=== PATIENT | female | born 1990 | race Two or more races ===

== ENCOUNTER 2024-06-01 14:58 | Outpatient (AMB) | payer OTHER, SELFPAY ==
--- NOTE | 2024-06-01 15:03 | A.OFFVIS_ITS ---
Vital Signs 06/01/24 15:05 Height 5 ft 6 in Weight 203 lb BMI 32.8 BP 118/66 Intake Visit Reasons: New patient control consult Cold Roll Operator Required: Yes Cold Roll Operator Language: Lithuanian Cold Roll Operator Services: Cold Roll Operator Present Cold Roll Operator Name: Black#[id number].(very helpful-MO'B Information Interpreted: clinical only Turf Sales Person: Turf Sales Person Present Allergies No Known Allergies Allergy (Verified 06/01/24 15:05) Medication List - Last Reconciled 06/01/24 by Sabrina Jones CNM etonogestrel (Nexplanon) subdermal Is last menstrual period known: No (Nexplanon) HPI HPI New patient control consult: Details: Patient is here as a new patient consult referred from a provider in [place] to discuss removal of her Nexplanon which may also be an or plant. It was placed in [place] 3 or 4 years ago. She has a history of 2 C sections she says her last baby was born at [facility]. She came with her Andre and their 2 children but I requested that they went outside and we did have an major assembly inspector who was a female (requested) Lithuanian major assembly inspector was very helpful. Patient did speak some Eritrean. She believes she is in good health she did not have any complications in her either 1. She denies having any high blood pressure or diabetes. She wants to have another baby her youngest child is 4 years old. She feels ready at 1st she said she had gained weight since she had placed the Nexplanon in but she actually clarified that she had weight herself before Ramadan and the difference in her weight was more just the clothing . She has been worried/suspecting often of late and has been doing tests periodically the last 1 she did was a month ago and it was negative. She removed her arm from the sleeve of her dress so that I could palpate the Nexplanon and she showed me very exactly where it is but I could only barely palpate the edge of it not sufficient to feel comfortable to plan an office removal. I am therefore referring her to [facility] general surgeons to discuss removal which would be a safer way to proceed. She and her expressed concern about washing to have a female provider and I did share that that may not be possible in this particular situation and if they chose they could also seek a female surgeon where they had been seen before. I explained that I would have been able to remove this if it was not so deep but I do not feel comfortable or safe in proceeding in office procedure to blindly remove the Nexplanon. In the meantime I recommend she continue to eat as healthy as she can and consider taking a multivitamin with folic acid every day. [facility] Surgical History (Updated 06/01/24 @ 15:07 by Leonor Zavaleta [facility]) S/P Female Reproductive History Menstrual Age of Menarche: 14 control method: implanted Total pregnancies: 2 Full term: 2 Date of last pap smear: 03/18/19 (neg.per patient) Physical Exam Vital Signs: Last Vital Signs BP 118/66 06/01/24 15:05 BMI result Body Mass Index 32.8 Const Other: I palpated her left arm, she was able to guide me to wear the Nexplanon is and in pressing very very deep I could almost palpate it but not in the secure way and I do not have confidence that I would be able to safely in the office. Assessment & Plan Assessment & Plan (1) Nexplanon in place: Comment: Patient has Nexplanon that was inserted in [place] 3 or 4 years ago and is very deep and she desires removal in order to have another baby. Code(s): Z97.5 - Presence of (intrauterine) contraceptive device Category: Social Hx Plan Patient is here as a new patient consult referred from a provider in [place] to discuss removal of her Nexplanon which may also be an or plant. It was placed in [place] 3 or 4 years ago. She has a history of 2 C sections she says her last baby was born at [facility]. She came with her Andre and their 2 children but I requested that they went outside and we did have an major assembly inspector who was a female (requested) Lithuanian major assembly inspector was very helpful. Patient did speak some Eritrean. She believes she is in good health she did not have any complications in her either 1. She denies having any high blood pressure or diabetes. She wants to have another baby her youngest child is 4 years old. She feels ready at 1st she said she had gained weight since she had placed the Nexplanon in but she actually clarified that she had weight herself before Ramadan and the difference in her weight was more just the clothing . She has been worried/suspecting often of late and has been doing tests periodically the last 1 she did was a month ago and it was negative. She removed her arm from the sleeve of her dress so that I could palpate the Nexplanon and she showed me very exactly where it is but I could only barely palpate the edge of it not sufficient to feel comfortable to plan an office removal. I am therefore referring her to [facility] general surgeons to discuss removal which would be a safer way to proceed. She and her expressed concern about washing to have a female provider and I did share that that may not be possible in this particular situation and if they chose they could also seek a female surgeon where they had been seen before. I explained that I would have been able to remove this if it was not so deep but I do not feel comfortable or safe in proceeding in office procedure to blindly remove the Nexplanon. In the meantime I recommend she continue to eat as healthy as she can and consider taking a multivitamin with folic acid every day. In addition when she does get I recommend she return to [facility] for she has a history sections. In addition to that I did discuss that can be somewhat on she she might find herself needing to do tests periodically. certainly if her menses return it is a sign the medication is wearing off. Orders: Referrals General Surgery Referral Z97.5 - Presence of (intrauterine) contraceptive device Coding Level of Care Code New Pt Level 3 (40251) Diagnoses Nexplanon in place Z97.5
[2024-06-01 15:05] VITALS: BP 118/66; BMI 32.8
--- OUTSIDE RECORDS SUMMARY | 2024-06-01 18:15 | XMS_ITS | Clinical Summary ---
Author Organization [facility] Address [address] [place] [address] Phone Care Team Providers Care Molecular Biologist Name Role Phone Rosy Petty MD Primary Care Provider [phone] Allergies No known active allergies Medications acetaminophen-c odeine (TYLENOL #3) 300-30 mg per tablet Take 1-2 tablets by mouth every 6 (six) hours if needed for severe pain. Max Daily Amount: 8 tablets 12 tablet 12/20/2023 Active Active Problems No known active problems Encounters Date Type Department Care Team Description 04/04/2024 11:35 AM EST - 04/04/2024 2:[address] [facility] Emergency [address] [place] [address] Sprain of right ankle, unspecified ligament, initial encounter (Primary Dx) Discharge Disposition: Home or Self Care from Last 3 Months Social History Tobacco Use Types Packs/Day Years Used Date Smoking Tobacco: Never Smokeless Tobacco: Never Tobacco Cessation:Counseling Given: Not Answered Comments Unknown Sex and Gender Information Value Date Recorded Sex Assigned at Female 04/04/2024 11:06 AM EST Legal Sex Female 4:37 PM EDT Gender Identity Female 04/04/2024 11:06 AM EST Sexual Orientation Straight 04/04/2024 11 :06 AM EST Obstetrics History Last Filed Vital Signs Vital Sign Reading Time Taken Comments Blood Pressure 105/74 04/04/2024 10:51 AM EST Pulse 99 04/04/2024 10:51 AM EST Temperature 36.7 ??C (98 ??F) 04/04/2024 10:51 AM EST Respiratory Rate 20 04/04/2024 10:51 AM EST Oxygen Saturation 100% 04/04/2024 10:51 AM EST Inhaled Oxygen Concentration - - Weight 93 kg (205 lb) 04/04/2024 10:51 AM EST Height 170.2 cm (5' 7 ) 04/04/2024 10:51 AM EST Body Mass Index 32.11 04/04/2024 10:51 AM EST Plan of Treatment Health Maintenance Due Date Last Done Comments DTaP,Tdap,and Td Vaccines (1 - Tdap) 2010 Hepatitis B Vaccines (1 of 3 - 19+ 3-dose series) 2010 Cervical Cancer Screening: P ap Smear 2012 COVID-19 Vaccine (2023-2 5 season) 2023 Depression Screening 12/14/2023 HIV Screening 12/14/2023 Hepatitis C Screening 12/14/2023 Social Influencers of Health Screening 12/14/2023 Influenza Vaccine (Season Ended) 2024 HIB Vaccines Aged Out No longer eligi ble based on patient's age to complete this topic HPV Vaccines Aged Out No longer eligi ble based on patient's age to complete this topic Hepatitis A Vaccines Aged Out No long er eligible based on patient's age to complete this topic IPV Vaccines Aged Out No longer eligi ble based on patient's age to complete this topic MMR Vaccines Aged Out No longer eligi ble based on patient's age to complete this topic Meningococcal ACWY Vaccine Aged Out N o longer eligible based on patient's age to complete this topic Meningococcal B Vaccine Aged Out No l onger eligible based on patient's age to complete this topic Pneumococcal Vaccine: Pediat rics (0 to 5 Years) and At-Risk Patients (6 to 64 Years) Aged Out No longer eligible b ased on patient's age to complete this topic RSV Immunization Patients Un michael 20 months Aged Out No longer eligible b ased on patient's age to complete this topic Varicella Vaccines Aged Out No longer eligible based on patient's age to complete this topic Procedures Procedure Name Priority Date/Time Associated Diagnosis Comments XR FOOT 3+ VIEWS RIGHT STAT 04/04/2024 1:02 PM EST XR ANKLE 3+ VIEWS RIGHT STAT 04/04/2024 11:40 AM EST from Last 3 Months Results * XR Foot 3+ Views Right (04/04/2024 1:02 PM EST) Anatomical Region Laterality Modality Lower Extremities, Foot Right Radiogra phic Imaging 04/04/2024 1:37 PM EST Impressions 04/04/2024 1:38 PM EST FINDINGS/IMPRESSION: No acute fracture. ??Normal alignment. -------- FINAL REPORT -------- Dictated By: Emili Swain Dictated Date: 04/04/2024 13:37 ET Assigned Physician: Emili Swain Reviewed and Electronically Signed By: Emili Swain Signed Date: 04/04/2024 13:38 ET Workstation ID: [id number] Transcribed By: Self Edit Transcribed Date: 04/04/2024 13:37 ET Narrative 04/04/2024 1:38 PM EST XR FOOT 3+ VIEWS RIGHT INDICATION: fall, pain 5th metatarsal TECHNIQUE: XR FOOT 3+ VIEWS RIGHT COMPARISON: No priors available. Procedure Note Emili Swain MD - 04/04/2024 XR FOOT 3+ VIEWS RIGHT INDICATION: fall, pain 5th metatarsal TECHNIQUE: XR FOOT 3+ VIEWS RIGHT COMPARISON: No priors available. IMPRESSION: FINDINGS/IMPRESSION: No acute fracture. Normal alignment. -------- FINAL REPORT -------- Dictated By: Emili Swain Dictated Date: 04/04/2024 13:37 ET Assigned Physician: Emili Swain Reviewed and Electronically Signed By: Emili Swain Signed Date: 04/04/2024 13:38 ET Workstation ID: [id number] Transcribed By: Self Edit Transcribed Date: 04/04/2024 13:37 ET Chio DELUCA XR PROCEDURES Final Result * XR Ankle 3+ Views Right (04/04/2024 11:40 AM EST) Anatomical Region Laterality Modality Lower Extremities, Ankle Right Radiogr aphic Imaging 04/04/2024 11:4 8 AM EST Impressions 04/04/2024 11:48 AM EST FINDINGS/IMPRESSION: No acute fracture. ?No dislocation. ??Mild soft tissue swelling. ??Tiny plantar calcaneal spur. -------- FINAL REPORT -------- Dictated By: Emili Swain Dictated Date: 04/04/2024 11:48 ET Assigned Physician: Emili Swain Reviewed and Electronically Signed By: Emili Swain Signed Date: 04/04/2024 11:48 ET Workstation ID: [id number] Transcribed By: Self Edit Transcribed Date: 04/04/2024 11:48 ET Narrative 04/04/2024 11:48 AM EST XR ANKLE 3+ VIEWS RIGHT INDICATION: pain TECHNIQUE: XR ANKLE 3+ VIEWS RIGHT COMPARISON: No priors available. Procedure Note Emili Swain MD - 04/04/2024 XR ANKLE 3+ VIEWS RIGHT INDICATION: pain TECHNIQUE: XR ANKLE 3+ VIEWS RIGHT COMPARISON: No priors available. IMPRESSION: FINDINGS/IMPRESSION: No acute fracture. No dislocation. Mild softtissue swelling. Tiny plantar calcaneal spur. -------- FINAL REPORT -------- Dictated By: Emili Swain Dictated Date: 04/04/2024 11:48 ET Assigned Physician: Emili Swain Reviewed and Electronically Signed By: Emili Swain Signed Date: 04/04/2024 11:48 ET Workstation ID: [id number] Transcribed By: Self Edit Transcribed Date: 04/04/2024 11:48 ET us Curly Anderson MD IMG XR PROCEDURES Final Res ult from Last 3 Months Insurance [facility] Care Teams Molecular Biologist Relationship Specialty Start Date End Date Rosy Petty MD [address] [address] PCP - General Internal Medicine 04/04/24
== END 2024-06-01 15:57 | disposition home or self-care (01) ==
LOC: HO.HWSM 14:58
PROVIDERS: Visit Provider Advanced Practice Midwife
DX: Z97.5 Presence of (intrauterine) contraceptive device (principal)
CPT/HCPCS: 99203

== ENCOUNTER → 2024-06-01 14:58 | Outpatient (BNVA) | payer OTHER, SELFPAY | PROVIDERS: Visit Provider Advanced Practice Midwife | DX: Z97.5 Presence of (intrauterine) contraceptive device (principal) | CPT/HCPCS: 99202 ==

== ENCOUNTER 2024-07-26 10:04 | Outpatient (AMB) | payer OTHER, SELFPAY ==
--- NOTE | 2024-07-26 10:13 | MHC.OFFVIS ---
Vital Signs 07/26/24 10:22 Height 5 ft 6 in Weight 200 lb BMI 32.3 BP 116/58 L Blood Pressure Location Rt brachial Position Sitting Pulse 103 H Intake Visit Reasons: possible removal nexplanon Intake Note: Patient referred for possible removal of Nexplanon placed on Lt arm. Was placed 3yrs and 7m ago. Implant placed in [place], [facility]. Patient c/o: pain at site. Getting headaches, joint pain. Peoplesoft Administrator Required: No Accompanied by: Henrietta Allergies No Known Allergies Allergy (Verified 07/26/24 10:20) Medication List - Last Reviewed 07/26/24 by KYUNG Roche etonogestrel (Nexplanon) subdermal HPI HPI possible removal nexplanon: Details: 34 year female referred for removal of a Nexplanon implant. She apparently had this placed in 2 done almost 4 years ago. [place] and has been unable to find a surgeon to remove this until now. She denies any complaints otherwise with regards to this implant. [facility] Medical History (Updated 07/26/24 @ 10:21 by KYUNG Roche) High cholesterol Surgical History (Updated 06/01/24 @ 15:07 by Leonor Zavaleta CMA) S/P Social History Alcohol intake: never Patient Tobacco Use Status: Never used Tobacco Female Reproductive History Menstrual Age of Menarche: 14 Review of Systems Const Denies chills and Denies fever(s) Card Denies chest pain, Denies dyspnea and Denies dyspnea on exertion Resp Denies cough, Denies dyspnea and Denies dyspnea on exertion GI Denies hematochezia and Denies change in bowel habits Denies hematuria Musc Denies back pain and Denies limited range of motion Neuro Denies focal weakness and Denies convulsions Psych Denies depression and Denies mood swings Physical Exam Const General: comfortable and no acute distress Nutritional Appearance: overweight Orientation/consciousness: patient oriented x3 Neck Neck: Yes no lymphadenopathy Resp Auscultation: clear to auscultation bilaterally Cardio Rhythm: regular rhythm GI Palpation (GI): Soft to palpation, nontender and no guarding Neuro General: patient oriented x3 Extrem Other: Left upper arm - next planned implant palpable, no evidence of infection Assessment & Plan Assessment & Plan (1) Nexplanon in place: Comment: Patient has Nexplanon that was inserted in [place] 3 or 4 years ago and is very deep and she desires removal in order to have another baby. Code(s): Z97.5 - Presence of (intrauterine) contraceptive device Category: Social Hx Plan: I explained the technique of removal of the Nexplanon implant under local anesthesia. I reviewed the risks including but not limited to bleeding, infections, postop pain. She has given consent. This will be done in the office on her next visit. Her was with her during the visit. Coding Level of Care Code New Pt Level 3 (71175) Diagnoses Nexplanon in place Z97.5
[2024-07-26 10:22] VITALS: BP 116/58; PULSE 103; BMI 32.3
--- OUTSIDE RECORDS SUMMARY | 2024-07-26 11:06 | XMS_ITS | Clinical Summary ---
Author Organization [facility] Address [address] [place] [address] Phone Care Team Providers Care Systems Test Engineer Name Role Phone Rosy Petty MD Primary Care Provider [phone] Allergies No known active allergies Medications acetaminophen-c odeine (TYLENOL #3) 300-30 mg per tablet Take 1-2 tablets by mouth every 6 (six) hours if needed for severe pain. Max Daily Amount: 8 tablets 12 tablet 4 Active methylPREDNISol one (MEDROL DOSPAK) 4 mg tablet Take 1 tablet by mouth as directed on the package. 21 tablet 5 07/04/19 25 amoxicillin-cla vulanate (AUGMENTIN) 875-125 mg per tablet Take 1 tablet by mouth every 12 (twelve) hours for 7 days. 14 tablet 5 07/05/19 25 Active Problems No known active problems Encounters Date Type Department Care Team Description 07/18/2024 9:31 PM EDT - 07/19/2024 12:29 AM EDT Emergency [facility] Emergency [address] [place] [phone] Rash (Primary Dx); Viral syndrome Discharge Disposition: Home or Self Care 06/27/2024 1:43 PM EDT - 06/27/2024 4:04 PM EDT [facility] Emergency [address] [place] [phone] Nasal congestion (Primary Dx); Left otitis media, unspecified otitis media type Discharge Disposition: Home or Self Care from [...] Sign Reading Time Taken Comments Blood Pressure 116/81 07/18/2024 11:57 PM EDT Pulse 97 07/18/2024 11:57 PM EDT Temperature 37.3 ??C (99.1 ??F) 07/18/2024 11:57 PM E DT Respiratory Rate 18 07/18/2024 11:57 PM EDT Oxygen Saturation 100% 07/18/2024 11:57 PM EDT Inhaled Oxygen Concentration - - Weight 92.1 kg (203 lb) 07/18/2024 7:20 PM EDT Height 167.6 cm (5' 6 ) 07/18/2024 7:20 PM EDT Body Mass Index 32.77 07/18/2024 7:20 PM EDT Plan of Treatment Health Maintenance Due Date Last Done Comments DTaP,Tdap,and Td Vaccines (1 - Tdap) 2010 Hepatitis B Vaccines (1 of 3 - 19+ 3-dose series) 2010 Cervical Cancer Screening: P ap Smear 2012 COVID-19 Vaccine ( - 2023-2 5 season) 2023 Depression Screening 12/14/2023 HIV [...] Procedure Name Priority Date/Time Associated Diagnosis Comments MANUAL DIFFERENTIAL - SYSMEX WAM STAT 07/18/2024 7:44 PM EDT CBC WITH AUTO DIFFERENTIAL STAT 07/18/2024 7:44 PM EDT BASIC METABOLIC PANEL STAT 07/18/2024 7:44 PM EDT CBC AND DIFFERENTIAL STAT 07/18/2024 7:44 PM EDT XR CHEST 2 VIEWS STAT 06/27/2024 3:08 PM EDT RESPIRATORY VIRUS PANEL MOLECULAR STUDY STAT 06/27/2024 2:03 PM EDT from Last 3 Months Results * (ABNORMAL) Manual differential (07/18/2024 7:44 PM EDT) Neutrophils % 68.0 % LAB HEMETOLOGY METHOD 07/18/2024 8:46 PM EDT [facility] Bands % 1.0 % LAB HEMETOLOGY METHOD 07/18/2024 8:46 PM EDT [facility] Lymphocytes % 19.0 % LAB HEMETOLOGY METHOD 07/18/2024 8:46 PM EDT [facility] Reactive Lymphocyte 7.00 % LAB HEMETOLOGY METHOD 07/18/2024 8:46 PM EDT [facility] Monocytes % 4.0 % LAB [facility]OLOGY [facility] Eosinophils % 1.0 % LAB HEMETOLOGY METHOD 07/18/2024 8:46 PM [facility] Basophils % 0.0 % LAB HEMETOLOGY METHOD 07/18/2024 8:46 PM [facility] Neutrophils Absolute Manual 3.47 1.50 - 7.00 K/mcL LAB HEMETOLOGY METHOD 07/18/2024 8:46 PM [facility] Bands Absolute Manual 0.05(H) 0.00 - 0.00 K/mcL LAB HEMETOLOGY METHOD 07/18/2024 8:46 PM [facility] Lymphocytes Absolute 0.97(L) 1.00 - 5.00 K/mcL LAB HEMETOLOGY METHOD 07/18/2024 8:46 PM [facility] Reactive Lymph Abs Manual 0.36(H) 0.00 - 0.00 lym LAB HEMETOLOGY METHOD 07/18/2024 8:46 PM [facility] Monocytes Absolute Manual 0.20 0.20 - 1.00 K/mcL LAB HEMETOLOGY METHOD 07/18/2024 8:46 PM [facility] Eosinophils Absolute Manual 0.05 0.00 - 0.50 K/mcL LAB HEMETOLOGY METHOD 07/18/2024 8:46 PM [facility] Basophils Absolute Manual 0.00 0.00 - 0.20 K/mcL LAB HEMETOLOGY METHOD 07/18/2024 8:46 PM [facility] Rbc Morphology Consistent with indices Consistent with indices, Normal for LAB HEMETOLOGY METHOD 07/18/2024 8:46 PM [facility] Platelet Morphology - WAM See Note(A) Normal LAB HEMETOLOGY METHOD 07/18/2024 8:46 PM [facility] Comment:PLT: Normal Blood Venous blood specimen / Unknown Venipuncture / Unknown 07/18/2024 7:44 PM EDT 07/18/2024 8:03 PM EDT us Lucasgiuliano Juan Alberto Edwin Otto DO LAB BLOOD ORDERABLES Milvia l Result [facility] [address] [place] [address], [place] [phone] * CBC auto differential (07/18/2024 7:44 PM EDT) [facility] WBC 5.1 4.8 - 10.8 K/mcL LAB HEMETOLOGY METHOD 07/18/2024 8:46 PM EDT [facility] RBC 4.20 3.80 - 4.80 M/mcL LAB HEMETOLOGY METHOD 07/18/2024 8:46 PM EDT [facility] Hemoglobin 11.9 11.5 - 16.0 g/dL LAB HEMETOLOGY METHOD 07/18/2024 8:46 PM EDT [facility] Hematocrit 35.8 35.0 - 47.0 % LAB HEMETOLOGY METHOD 07/18/2024 8:46 PM EDT [facility] MCV 85.2 79.0 - 98.0 FL LAB HEMETOLOGY METHOD 07/18/2024 8:46 PM EDT [facility] MCH 28.3 27.0 - 32.0 pcg LAB HEMETOLOGY METHOD 07/18/2024 8:46 PM EDT [facility] MCHC 33.2 32.0 - 37.0 g/dL LAB HEMETOLOGY METHOD 07/18/2024 8:46 PM EDT [facility] RDW 12.9 11.0 - 15.0 % LAB HEMETOLOGY METHOD 07/18/2024 8:46 PM EDT [facility] Platelets 289 130 - 400 K/mcL LAB HEMETOLOGY METHOD 07/18/2024 8:46 PM EDT [facility] MPV 9.8 7.0 - 11.0 FL LAB HEMETOLOGY METHOD 07/18/2024 8:46 PM EDT [facility] NRBC 0.0 <1.0 % LAB HEMETOLOGY METHOD 07/18/2024 8:46 PM EDT [facility] NRBC Absolute 0.00 <0.10 K/mcL LAB HEMETOLOGY METHOD 07/18/2024 8:46 PM EDT [facility] Blood Venous blood specimen / Unknown Venipuncture / Unknown 07/18/2024 7:44 PM EDT 07/18/2024 8:03 PM EDT us Lucasgiuliano Nietony Otto DO LAB BLOOD ORDERABLES Milvia l Result [facility] [address] [place] [address], * (ABNORMAL) Basic metabolic panel (07/18/2024 7:44 PM EDT) Sodium 136 133 - 145 mmol/L LAB CHEMISTRY METHOD 07/18/2024 8:35 PM [facility] Potassium 3.8 3.5 - 5.5 mmol/L LAB CHEMISTRY METHOD 07/18/2024 8:35 PM [facility] Chloride 107 96 - 110 mmol/L LAB CHEMISTRY METHOD 07/18/2024 8:35 PM [facility] CO2 25 21 - 32 mmol/L LAB CHEMISTRY METHOD 07/18/2024 8:35 PM [facility] Anion Gap 4 3 - 11 LAB CHEMISTRY METHOD 07/18/2024 8:35 PM [facility] Glucose 134(H) 70 - 100 mg/dL LAB CHEMISTRY METHOD 07/18/2024 8:35 PM [facility] BUN 10 5 - 25 mg/dL LAB CHEMISTRY METHOD 07/18/2024 8:35 PM EDT [facility] Creatinine 0.63 0.50 - 1.10 mg/dL LAB CHEMISTRY METHOD 07/18/2024 8:35 PM EDT [facility] eGFR 120 >=60 mL/min/1. 73m2 LAB CHEMISTRY METHOD 07/18/2024 8:35 PM EDT [facility] Comment:Calculation based on the Chronic Kidney Disease Epidemiology Collaboration (CKD-EPI) equation refit without adjustment for race. BUN/Creatinine Ratio 15.9 LAB CHEMISTRY METHOD 07/18/2024 8:35 PM EDT [facility] Calcium 8.9 8.5 - 10.5 mg/dL LAB CHEMISTRY METHOD 07/18/2024 8:35 PM EDT [facility] Blood Venous blood specimen / Unknown Venipuncture / Unknown 07/18/2024 7:44 PM EDT 07/18/2024 8:03 PM EDT us Elizabeth Menjivar DO LAB BLOOD ORDERABLES Milvia l Result [facility] [address] [place] [address], [place] [phone] * XR Chest 2 Views (06/27/2024 3:08 PM EDT) Anatomical Region Laterality Modality Body Radiographic Danielle ging 06/27/2024 3:21 PM EDT Impressions 06/27/2024 3:21 PM EDT Unremarkable chest exam -------- FINAL REPORT -------- Dictated By: Darek Chávez Dictated Date: 06/27/2024 15:21 ET Assigned Physician: Darek Chávez Reviewed and Electronically Signed By: Darek Chávez Signed Date: 06/27/2024 15:21 ET Workstation ID: [id number] Transcribed By: Self Edit Transcribed Date: 06/27/2024 15:21 ET Narrative 06/27/2024 3:21 PM EDT EXAMINATION: Chest 2 views. CLINICAL INDICATION: Dyspnea, possible COPD. FINDINGS: The lungs are hyperexpanded but clear acute process. The heart size and pulmonary vascularity is normal. No gross bony abnormality seen. Procedure Note Darek Chávez MD - 06/27/2024 EXAMINATION: Chest 2 views. CLINICAL INDICATION: Dyspnea, possible COPD. FINDINGS: The lungs are hyperexpanded but clear acute process. The heartsize and pulmonary vascularity is normal. No gross bony abnormalityseen. IMPRESSION: Unremarkable chest exam -------- FINAL REPORT -------- Dictated By: Darek Chávez Dictated Date: 06/27/2024 15:21 ET Assigned Physician: Darek Chávez Reviewed and Electronically Signed By: Darek Chávez Signed Date: 06/27/2024 15:21 ET Workstation ID: [id number] Transcribed By: Self Edit Transcribed Date: 06/27/2024 15:21 ET Violeta Acosta PA IMG XR PROCEDURES Milvia l Result * (ABNORMAL) Respiratory virus panel molecular study (06/27/2024 2:03 PM EDT) Adenovirus Detection by PCR Not Detected Not Detected LAB MICROBIOLOGY METHOD 06/27/2024 3:11 PM EDT [facility] Influenza A PCR Not Detected Not Detected LAB MICROBIOLOGY METHOD 06/27/2024 3:11 PM EDT [facility] Influenza B PCR Not Detected Not Detected LAB MICROBIOLOGY METHOD 06/27/2024 3:11 PM EDT [facility] Coronavirus 229E Not Detected Not Detected LAB MICROBIOLOGY METHOD 06/27/2024 3:11 PM EDT [facility] Coronavirus HKU1 Not Detected Not Detected LAB MICROBIOLOGY METHOD 06/27/2024 3:11 PM EDT [facility] Coronavirus OC43 Not Detected Not Detected LAB MICROBIOLOGY METHOD 06/27/2024 3:11 PM EDT [facility] Coronavirus NL63 Not Detected Not Detected LAB MICROBIOLOGY METHOD 06/27/2024 3:11 PM EDT [facility] Parainfluenza Virus 1 Not Detected Not Detected LAB MICROBIOLOGY METHOD 06/27/2024 3:11 PM EDT [facility] Parainfluenza Virus 2 Not Detected Not Detected LAB MICROBIOLOGY METHOD 06/27/2024 3:11 PM EDT [facility] Parainfluenza Virus 3 Not Detected Not Detected LAB MICROBIOLOGY METHOD 06/27/2024 3:11 PM EDT [facility] Parainfluenza Virus 4 Not Detected Not Detected LAB MICROBIOLOGY METHOD 06/27/2024 3:11 PM EDT [facility] RSV PCR Not Detected Not Detected LAB MICROBIOLOGY METHOD 06/27/2024 3:11 PM EDT [facility] Human Metapneumovirus A and B Detected(A ) Not Detected LAB MICROBIOLOGY METHOD 06/27/2024 3:11 PM EDT [facility] Rhinovirus/Entero virus Not Detected Not Detected LAB MICROBIOLOGY METHOD 06/27/2024 3:11 PM EDT [facility] Bordetella pertussis Not Detected Not Detected LAB MICROBIOLOGY METHOD 06/27/2024 3:11 PM EDT [facility] Bordetella parapertussis Not Detected Not Detected LAB MICROBIOLOGY METHOD 06/27/2024 3:11 PM EDT [facility] Mycoplasma pneumo by PCR Not Detected Not Detected LAB MICROBIOLOGY METHOD 06/27/2024 3:11 PM EDT [facility] Chlamydia pneumoniae Not Detected Not Detected LAB MICROBIOLOGY METHOD 06/27/2024 3:11 PM EDT [facility] SARS COV-2 Not Detected Not Detected LAB MICROBIOLOGY METHOD 06/27/2024 3:11 PM EDT [facility] Swab Both anterior nares / Unknown Non-blood Collection / Unknown 06/27/2024 2:03 PM EDT 06/27/2024 2:08 PM EDT Narrative [facility] - 06/27/2024 3:11 PM EDT Testing was performed using the EnSol Respiratory Pathogen PCR Assay. All results must be correlated with the clinical findings. Results should not be used as the sole basis for diagnosis. False Negative results may occur from the presence of sequence variants in the region targeted by the assay or the presence of inhibitors. Results may be affected by concurrent antiviral/antimicrobial therapy or levels of organisms that are below the limit of detection. us Violeta JOINER LAB MICROBIOLOGY - GEN ERAL ORDERABLES Final Result [facility] [address] [place] [address], from Last 3 Months Additional Health Concerns Infection Onset Date Last Indicated Human Metapneumovirus 06/27/2024 06/27/2024 Insurance [facility] Care Teams Systems Test Engineer Relationship Specialty Start Date End Date Rosy Petty MD [address] [phone] PCP - General Internal Medicine 04/04/24
== END 2024-07-26 10:36 | disposition home or self-care (01) ==
LOC: HO.HGS 10:04
PROVIDERS: PCP Internal Medicine; Visit Provider Surgery
DX: Z97.5 Presence of (intrauterine) contraceptive device (principal)
CPT/HCPCS: 99203

== ENCOUNTER → 2024-07-26 10:04 | Outpatient (BNVA) | payer OTHER, SELFPAY | PROVIDERS: PCP Internal Medicine; Visit Provider Surgery | DX: Z97.5 Presence of (intrauterine) contraceptive device (principal) | CPT/HCPCS: 99202 ==

== ENCOUNTER 2024-09-01 08:29 | Outpatient (REF) | payer OTHER, SELFPAY | END 2024-09-01 08:30 | disposition home or self-care (01) | LOC: HO.LNP 08:29 | PROVIDERS: PCP Internal Medicine; Visit Provider Surgery | DX: Z30.46 Encounter for surveillance of implantable subdermal contraceptive (principal); L98.8 Other specified disorders of the skin and subcutaneous tissue; B96.4 Proteus (mirabilis) (morganii) as the cause of diseases classified elsewhere | CPT/HCPCS: 11982; 88300; 88302 ==

== ENCOUNTER 2024-09-01 08:29 | Outpatient (AMB) | payer OTHER, SELFPAY ==
[2024-09-01 08:32] VITALS: BP 127/76; PULSE 90; BMI 32.4
--- NOTE | 2024-09-01 08:32 | MHC.OFFVIS ---
Vital Signs 09/01/24 08:32 Height 5 ft 6 in Weight 201 lb BMI 32.4 BP 127/76 Blood Pressure Location Rt brachial Position Sitting Pulse 90 Intake Visit Reasons: removal nexplanon Intake Note: Patent here for excision of Nexplanon implant on left upper arm. 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 PFSH Medical History (Updated 07/26/24 @ 10:21 by KYUNG Roche) High cholesterol Surgical History S/P Social History (Updated 07/26/24 @ 10:21 by KYUNG Roche) Alcohol intake: never Patient Tobacco Use Status: Never used Tobacco Female Reproductive History Menstrual Age of Menarche: 14 Office Procedures Procedure Thyroid Biopsy Procedural Documentation: Procedure: Removal of Nexplanon implant She was placed in reclining position. The area of the implant was prepped and draped. Lidocaine 1% was used for local anesthesia. I made a short incision the skin overlying this implant with a blade 15. This carried down to full-thickness of the skin. I then used fine hemostats to dissect in the subcutaneous fat until was able to visualize the Nexplanon implant. This was gently dissected off of the subcutaneous fat until this was removed. This appeared intact. I closed the incision with full-thickness nylon 3-0 simple interrupted sutures. Dressings were applied. The procedure was completed. She tolerated procedure well. There were no immediate complications. She was given wound care instructions and will be seen in the office for removal sutures. Assessment & Plan Assessment & Plan (1) Nexplanon in place: Comment: Patient has Nexplanon that was inserted in [place] 3 or 4 years ago and is very deep and she desires removal in order to have another baby. Code(s): Z97.5 - Presence of (intrauterine) contraceptive device Category: Social Hx Plan: The Nexplanon implant was removed without difficulty. The patient tolerated procedure well. She was given wound care instructions and will be seen in the office for removal sutures. Coding Level of Care Code Procedure Only Diagnoses Nexplanon in place Z97.5
--- OUTSIDE RECORDS SUMMARY | 2024-09-01 08:33 | XMS_ITS | Clinical Summary ---
Author Organization [facility] Address [address] [place] [phone] Phone Care Team Providers Care Keyboard Instrument Tuner Name Role Phone Rosy Petty MD Primary Care Provider [phone] Allergies No known active allergies Medications acetaminophen-c odeine (TYLENOL #3) 300-30 mg per tablet Take 1-2 tablets by mouth every 6 (six) hours if needed for severe pain. Max Daily Amount: 8 tablets 12 tablet 12/20/2023 Active Active Problems No known active problems Encounters Date Type Department Care Team Description 07/18/2024 9:31 PM EDT - 07/19/2024 12:[address] [facility] Emergency [address] [place] [phone] Rash (Primary Dx); Viral syndrome Discharge Disposition: Home or Self Care 06/27/2024 1:43 PM EDT - 06/27/2024 4:[address] [facility] Emergency [address] [place] [phone] Nasal congestion (Primary Dx); Left otitis media, [...] 97 07/18/2024 11:57 PM EDT Temperature 37.3 C (99.1 F) 07/18/2024 11:57 PM EDT Respiratory Rate 18 07/18/2024 11:57 PM EDT [...] Vaccine ( - 2023-2 5 season) 2023 HIV Screening 12/14/2023 Hepatitis C Screening 12/14/2023 Social Influencers of Health Screening 12/14/2023 Depression Screening 02/18/2024 Influenza Vaccine (#1) 2024 HIB Vaccines Aged Out No longer [...] 5 Years) and At-Risk Patients (6 to 49 Years) Aged Out No longer eligible b [...] LAB HEMETOLOGY METHOD 07/18/2024 8:46 PM EDT [facility] Bands % 1.0 % LAB HEMETOLOGY METHOD 07/18/2024 8:46 PM EDT [facility] Lymphocytes % 19.0 % LAB HEMETOLOGY METHOD 07/18/2024 8:46 PM EDT [facility] Reactive Lymphocyte 7.00 % LAB HEMETOLOGY METHOD 07/18/2024 8:46 PM EDT [facility] Monocytes % 4.0 % LAB HEMETOLOGY METHOD 07/18/2024 8:46 PM EDT [facility] Eosinophils % 1.0 % LAB HEMETOLOGY METHOD 07/18/2024 8:46 PM EDT [facility] Basophils % 0.0 % LAB HEMETOLOGY METHOD 07/18/2024 8:46 PM EDT [facility] Neutrophils Absolute Manual 3.47 1.50 - 7.00 K/mcL LAB HEMETOLOGY METHOD 07/18/2024 8:46 PM EDT [facility] Bands Absolute Manual 0.05(H) 0.00 - 0.00 K/mcL LAB HEMETOLOGY METHOD 07/18/2024 8:46 PM EDT [facility] Lymphocytes Absolute 0.97(L) 1.00 - 5.00 K/mcL LAB HEMETOLOGY METHOD 07/18/2024 8:46 PM EDT [facility] Reactive Lymph Abs Manual 0.36(H) 0.00 - 0.00 lym LAB HEMETOLOGY METHOD 07/18/2024 8:46 PM EDT [facility] Monocytes Absolute Manual 0.20 0.20 - 1.00 K/mcL LAB HEMETOLOGY METHOD 07/18/2024 8:46 PM EDT [facility] Eosinophils Absolute Manual 0.05 0.00 - 0.50 K/mcL LAB HEMETOLOGY METHOD 07/18/2024 8:46 PM EDT [facility] Basophils Absolute Manual 0.00 0.00 - 0.20 K/mcL LAB HEMETOLOGY METHOD 07/18/2024 8:46 PM EDT [facility] Rbc Morphology Consistent with indices Consistent with indices, Normal for [place] LAB HEMETOLOGY METHOD 07/18/2024 8:46 PM EDT [facility] Platelet Morphology - WAM See Note(A) Normal LAB HEMETOLOGY METHOD 07/18/2024 8:46 PM EDT [facility] Comment:PLT: Normal Blood Venous blood specimen / Unknown Venipuncture / Unknown 07/18/2024 7:44 PM EDT 07/18/2024 8:03 PM EDT us Elizabeth Menjivar DO LAB BLOOD ORDERABLES Milvia l Result [facility] [address] [place] [address], [place] [phone] * CBC auto differential (07/18/2024 7:44 PM EDT) [facility] WBC 5.1 4.8 - 10.8 K/mcL LAB HEMETOLOGY METHOD 07/18/2024 8:46 PM EDT [facility] RBC 4.20 3.80 - 4.80 M/mcL LAB HEMETOLOGY METHOD 07/18/2024 8:46 PM EDT [facility] Hemoglobin 11.9 11.5 - 16.0 g/dL LAB HEMETOLOGY METHOD 07/18/2024 8:46 PM EDT [facility] Hematocrit 35.8 35.0 - 47.0 % LAB HEMETOLOGY METHOD 07/18/2024 8:46 PM EDT [facility] MCV 85.2 79.0 - 98.0 FL LAB HEMETOLOGY METHOD 07/18/2024 8:46 PM EDT [facility] MCH 28.3 27.0 - 32.0 pcg LAB HEMETOLOGY METHOD 07/18/2024 8:46 PM EDT [facility] MCHC 33.2 32.0 - 37.0 g/dL LAB HEMETOLOGY METHOD 07/18/2024 8:46 PM EDT [facility] RDW 12.9 11.0 - 15.0 % LAB HEMETOLOGY METHOD 07/18/2024 8:46 PM EDT [facility] Platelets 289 130 - 400 K/mcL LAB HEMETOLOGY METHOD 07/18/2024 8:46 PM EDT [facility] MPV 9.8 7.0 - 11.0 FL LAB HEMETOLOGY METHOD 07/18/2024 8:46 PM EDT [facility] NRBC 0.0 <1.0 % LAB HEMETOLOGY METHOD 07/18/2024 8:46 PM EDT [facility] NRBC Absolute 0.00 <0.10 K/mcL LAB HEMETOLOGY METHOD 07/18/2024 8:46 PM EDT [facility] Blood Venous blood specimen / Unknown Venipuncture / Unknown 07/18/2024 7:44 PM EDT 07/18/2024 8:03 PM EDT us Elizabeth Pineda Menjivar DO LAB BLOOD ORDERABLES Milvia l Result [facility] [address] [place] [address], [place] [phone] * (ABNORMAL) Basic metabolic panel (07/18/2024 7:44 PM EDT) Sodium 136 133 - 145 mmol/L LAB CHEMISTRY METHOD 07/18/2024 8:35 PM [facility] Potassium 3.8 3.5 - 5.5 mmol/L LAB CHEMISTRY METHOD 07/18/2024 8:35 PM [facility] Chloride 107 96 - 110 mmol/L LAB CHEMISTRY METHOD 07/18/2024 8:35 PM [facility] CO2 25 21 - 32 mmol/L LAB CHEMISTRY METHOD 07/18/2024 8:35 PM [facility] Anion Gap 4 3 - 11 LAB CHEMISTRY METHOD 07/18/2024 8:35 PM [facility] Glucose 134(H) 70 - 100 mg/dL LAB CHEMISTRY METHOD 07/18/2024 8:35 PM [facility] BUN 10 5 - 25 mg/dL LAB CHEMISTRY METHOD 07/18/2024 8:35 PM [facility] Creatinine 0.63 0.50 - 1.10 mg/dL LAB CHEMISTRY METHOD 07/18/2024 8:35 PM [facility] eGFR 120 >=60 mL/min/1. 73m2 LAB CHEMISTRY METHOD 07/18/2024 8:35 PM EDT [facility] Comment:Calculation based on the Chronic Kidney Disease Epidemiology Collaboration (CKD-EPI) equation refit without adjustment for race. BUN/Creatinine Ratio 15.9 LAB CHEMISTRY METHOD 07/18/2024 8:35 PM EDT [facility] Calcium 8.9 8.5 - 10.5 mg/dL LAB CHEMISTRY METHOD 07/18/2024 8:35 PM EDT [facility] Blood Venous blood specimen / Unknown Venipuncture / Unknown 07/18/2024 7:44 PM EDT 07/18/2024 8:03 PM EDT us Elizabeth Avendano Edwin Otto DO LAB BLOOD ORDERABLES Milvia l Result [facility] [address] [place] [address], [place] [phone] * XR Chest 2 Views (06/27/2024 3:08 PM EDT) Anatomical Region Laterality Modality Body Radiographic Danielle ging 06/27/2024 3:21 PM EDT Impressions 06/27/2024 3:21 PM EDT Unremarkable chest exam -------- FINAL REPORT -------- Dictated By: Darek Chávez Dictated Date: 06/27/2024 15:21 ET Assigned Physician: Darek Chávez Reviewed and Electronically Signed By: Darek Chávez Signed Date: 06/27/2024 15:21 ET Workstation ID: [id number] Transcribed By: Self Edit Transcribed Date: 06/27/2024 [...] Signed Date: 06/27/2024 15:21 ET Workstation ID: [id number] Transcribed By: Self Edit Transcribed Date: 06/27/2024 15:21 ET us Violeta Acosta PA IMG XR PROCEDURES Milvia l Result * (ABNORMAL) Respiratory virus panel molecular study (06/27/2024 2:03 PM EDT) Adenovirus Detection by PCR Not Detected Not Detected LAB MICROBIOLOGY METHOD 06/27/2024 3:11 PM EDT [facility] Influenza A PCR Not Detected Not Detected LAB MICROBIOLOGY METHOD 06/27/2024 3:11 PM EDT [facility] Influenza B PCR Not Detected Not Detected LAB MICROBIOLOGY METHOD 06/27/2024 3:11 PM EDT [facility] Coronavirus 229E Not Detected Not Detected LAB MICROBIOLOGY METHOD 06/27/2024 3:11 PM EDT [facility] Coronavirus HKU1 Not Detected Not Detected LAB MICROBIOLOGY METHOD 06/27/2024 3:11 PM EDT [facility] Coronavirus OC43 Not Detected Not Detected LAB MICROBIOLOGY METHOD 06/27/2024 3:11 PM EDT [facility] Coronavirus NL63 Not Detected Not Detected LAB MICROBIOLOGY METHOD 06/27/2024 3:11 PM EDT [facility] Parainfluenza Virus 1 Not Detected Not Detected LAB MICROBIOLOGY METHOD 06/27/2024 3:11 PM EDT [facility] Parainfluenza Virus 2 Not Detected Not Detected LAB MICROBIOLOGY METHOD 06/27/2024 3:11 PM EDT [facility] Parainfluenza Virus 3 Not Detected Not Detected LAB MICROBIOLOGY METHOD 06/27/2024 3:11 PM EDT [facility] Parainfluenza Virus 4 Not Detected Not Detected LAB MICROBIOLOGY METHOD 06/27/2024 3:11 PM EDT [facility] RSV PCR Not Detected Not Detected LAB MICROBIOLOGY METHOD 06/27/2024 3:11 PM EDT [facility] Human Metapneumovirus A and B Detected(A ) Not Detected LAB MICROBIOLOGY METHOD 06/27/2024 3:11 PM EDT [facility] Rhinovirus/Entero virus Not Detected Not Detected LAB MICROBIOLOGY METHOD 06/27/2024 3:11 PM EDT [facility] Bordetella pertussis Not Detected Not Detected LAB MICROBIOLOGY METHOD 06/27/2024 3:11 PM EDT [facility] Bordetella parapertussis Not Detected Not Detected LAB MICROBIOLOGY METHOD 06/27/2024 3:11 PM EDT [facility] Mycoplasma pneumo by PCR Not Detected Not Detected LAB MICROBIOLOGY METHOD 06/27/2024 3:11 PM EDT [facility] Chlamydia pneumoniae Not Detected Not Detected LAB MICROBIOLOGY METHOD 06/27/2024 3:11 PM EDT [facility] SARS COV-2 Not Detected Not Detected LAB MICROBIOLOGY METHOD 06/27/2024 3:11 PM EDT [facility] Swab Both anterior nares / Unknown Non-blood Collection / Unknown 06/27/2024 2:03 PM EDT 06/27/2024 2:08 PM EDT [facility] - 06/27/2024 3:11 PM EDT Testing was performed using the [employer] Respiratory Pathogen PCR Assay. All results must [...] that are below the limit of detection. Violeta JOINER LAB MICROBIOLOGY - GEN ERAL ORDERABLES Final Result [facility] [address] [place] [address], from Last 3 Months Additional Health Concerns Infection Onset Date Last Indicated Human Metapneumovirus 06/27/2024 06/27/[address] [place] [address] [facility] Care Teams Keyboard Instrument Tuner Relationship Specialty Start Date End Date Rosy Petty MD [address] [phone] PCP - General Internal Medicine 04/04/24
== END 2024-09-01 09:09 | disposition home or self-care (01) ==
LOC: HO.HGS 08:30
PROVIDERS: PCP Internal Medicine; Visit Provider Surgery
DX: Z30.46 Encounter for surveillance of implantable subdermal contraceptive (principal)
CPT/HCPCS: 11982

== ENCOUNTER 2024-09-21 10:21 | Outpatient (AMB) | payer OTHER, SELFPAY ==
--- NOTE | 2024-09-21 10:36 | A.OFFVIS_ITS ---
Vital Signs 09/21/24 10:48 Height 5 ft 6 in Weight 201 lb BMI 32.4 BP 121/65 Blood Pressure Location Rt brachial Position Sitting Pulse 99 Intake Visit Reasons: suture removal Intake Note: Patient here s/p Nexplanon implant removal. Lt upper arm Suture removed without incident. International Accountant Required: No Accompanied by: Self / Same As Patient Allergies No Known Allergies Allergy (Verified 09/21/24 10:48) HPI HPI suture removal: Details: Patient doing well, here for suture removal. Endorses some pain at the incision site. Denies discharge or oozing. Denies fever or chills PFSH Medical History (Updated 09/21/24 @ 10:54 by Eugenio Chisholm PA-C) High cholesterol Surgical History S/P Social History (Updated 07/26/24 @ 10:21 by KYUNG Roche) Alcohol intake: never Patient Tobacco Use Status: Never used Tobacco Female Reproductive History Menstrual Age of Menarche: 14 Review of Systems Const All systems reviewed & are unremarkable except as noted in HPI and below Physical Exam Vital Signs: Last Vital Signs Pulse 99 09/21/24 10:48 BP 121/65 09/21/24 10:48 BMI result Body Mass Index 32.4 Const General: comfortable and no acute distress Orientation/consciousness: patient oriented x3 Resp Effort & Inspection: normal respiratory effort and able to speak in complete sentences Neuro General: patient oriented x3 Extrem Other: Left proximal upper arm: Two sutures in place, removed in office. Mildly tender to palpation. No surrounding erythema or fluid collection incision site appears well healed Assessment & Plan Assessment & Plan (1) Visit for suture removal: Code(s): Z48.02 - Encounter for removal of sutures Category: Medical Plan 34-year-old female presenting to the office following Nexplanon removal on 09/01. Patient is doing well she does endorse some mild pain at the incision site. Denies fevers or chills or discharge from incision. Two sutures were removed in office, patient tolerated well. Reviewed the pathology reports indicate the patient a copy of these results; Nexplanon, adipose tissue. Patient no longer requiring follow-up can follow up with any concerns in the future Coding Level of Care Code Est Pt Level 3 (37442) Diagnoses Visit for suture removal Z48.02
[2024-09-21 10:48] VITALS: BP 121/65; PULSE 99; BMI 32.4
--- OUTSIDE RECORDS SUMMARY | 2024-09-21 11:01 | XMS_ITS | Clinical Summary ---
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 Max Daily Amount: 8 tablets 12 tablet 12/20/2023 Active Active Problems No known active problems Encounters Date Type Department Care Team Description 07/18/2024 9:31 PM EDT - 07/19/2024 12:29 AM EDT Emergency [facility] Emergency [address] [place] [phone] Rash (Primary Dx); Viral syndrome Discharge Disposition: Home or Self Care 06/27/2024 1:43 PM EDT - 06/27/2024 4:04 PM EDT Emergency [facility] Emergency [address] [place] [phone] Nasal congestion (Primary Dx); Left otitis media, [...] LAB HEMETOLOGY METHOD 07/18/2024 8:46 PM EDT [facility] Bands % 1.0 % LAB HEMETOLOGY METHOD 07/18/2024 8:46 PM EDT [facility] Lymphocytes % 19.0 % LAB HEMETOLOGY METHOD 07/18/2024 8:46 PM EDT [facility] Reactive Lymphocyte 7.00 % LAB HEMETOLOGY METHOD 07/18/2024 8:46 PM EDT [facility] Monocytes % 4.0 % LAB HEMETOLOGY METHOD 07/18/2024 8:46 PM EDT [facility] Eosinophils % 1.0 % LAB HEMETOLOGY METHOD 07/18/2024 8:46 PM EDT [facility] Basophils % 0.0 % LAB HEMETOLOGY METHOD 07/18/2024 8:46 PM EDT [facility] Neutrophils Absolute Manual 3.47 1.50 - 7.00 K/mcL LAB HEMETOLOGY METHOD 07/18/2024 8:46 PM EDT [facility] Bands Absolute Manual 0.05(H) 0.00 - 0.00 K/mcL LAB HEMETOLOGY METHOD 07/18/2024 8:46 PM EDT [facility] Lymphocytes Absolute 0.97(L) 1.00 - 5.00 K/mcL LAB HEMETOLOGY METHOD 07/18/2024 8:46 PM EDT [facility] Reactive Lymph Abs Manual 0.36(H) 0.00 - 0.00 lym LAB HEMETOLOGY METHOD 07/18/2024 8:46 PM EDT [facility] Monocytes Absolute Manual 0.20 0.20 - 1.00 K/mcL LAB HEMETOLOGY METHOD 07/18/2024 8:46 PM EDT [facility] Eosinophils Absolute Manual 0.05 0.00 - 0.50 K/mcL LAB HEMETOLOGY METHOD 07/18/2024 8:46 PM EDT [facility] Basophils Absolute Manual 0.00 0.00 - 0.20 K/mcL LAB HEMETOLOGY METHOD 07/18/2024 8:46 PM EDT [facility] Rbc Morphology Consistent with indices Consistent with indices, Normal for [place] LAB HEMETOLOGY METHOD 07/18/2024 8:46 PM EDT [facility] Platelet Morphology - WAM See Note(A) Normal LAB HEMETOLOGY METHOD 07/18/2024 8:46 PM EDT [facility] Comment:PLT: Normal Blood Venous blood specimen / Unknown Venipuncture / Unknown 07/18/2024 7:44 PM EDT 07/18/2024 8:03 PM EDT us Elizabeth Menjivar DO LAB BLOOD ORDERABLES Milvia l Result [facility] [address] [place] [address], [place] [phone] * CBC auto differential (07/18/2024 7:44 PM EDT) [facility] WBC 5.1 4.8 - 10.8 K/mcL LAB HEMETOLOGY METHOD 07/18/2024 8:46 PM EDT [facility] RBC 4.20 3.80 - 4.80 M/mcL LAB HEMETOLOGY METHOD 07/18/2024 8:46 PM EDT [facility] Hemoglobin 11.9 11.5 - 16.0 g/dL LAB HEMETOLOGY METHOD 07/18/2024 8:46 PM EDT [facility] Hematocrit 35.8 35.0 - 47.0 % LAB HEMETOLOGY METHOD 07/18/2024 8:46 PM EDT [facility] MCV 85.2 79.0 - 98.0 FL LAB HEMETOLOGY METHOD 07/18/2024 8:46 PM EDT [facility] MCH 28.3 27.0 - 32.0 pcg LAB HEMETOLOGY METHOD 07/18/2024 8:46 PM EDT [facility] MCHC 33.2 32.0 - 37.0 g/dL LAB HEMETOLOGY METHOD 07/18/2024 8:46 PM EDT [facility] RDW 12.9 11.0 - 15.0 % LAB HEMETOLOGY METHOD 07/18/2024 8:46 PM EDT [facility] Platelets 289 130 - 400 K/mcL LAB HEMETOLOGY METHOD 07/18/2024 8:46 PM EDT [facility] MPV 9.8 7.0 - 11.0 FL LAB HEMETOLOGY METHOD 07/18/2024 8:46 PM EDT [facility] NRBC 0.0 <1.0 % LAB HEMETOLOGY METHOD 07/18/2024 8:46 PM EDT [facility] NRBC Absolute 0.00 <0.10 K/mcL LAB HEMETOLOGY METHOD 07/18/2024 8:46 PM EDT [facility] Blood Venous blood specimen / Unknown Venipuncture / Unknown 07/18/2024 7:44 PM EDT 07/18/2024 8:03 PM EDT us Elizabeth Pineda Menjivar DO LAB BLOOD ORDERABLES Milvia l Result [facility] [address] [place] [address], [place] [phone] * (ABNORMAL) Basic metabolic panel (07/18/2024 7:44 PM EDT) Sodium 136 133 - 145 mmol/L LAB CHEMISTRY METHOD 07/18/2024 8:35 PM [facility] Potassium 3.8 3.5 - 5.5 mmol/L LAB CHEMISTRY METHOD 07/18/2024 8:35 PM [facility] Chloride 107 96 - 110 mmol/L LAB CHEMISTRY METHOD 07/18/2024 8:35 PM [facility] CO2 25 21 - 32 mmol/L LAB CHEMISTRY METHOD 07/18/2024 8:35 PM [facility] Anion Gap 4 3 - 11 LAB CHEMISTRY METHOD 07/18/2024 8:35 PM [facility] Glucose 134(H) 70 - 100 mg/dL LAB CHEMISTRY METHOD 07/18/2024 8:35 PM [facility] BUN 10 5 - 25 mg/dL LAB CHEMISTRY METHOD 07/18/2024 8:35 PM [facility] Creatinine 0.63 0.50 - 1.10 mg/dL LAB CHEMISTRY METHOD 07/18/2024 8:35 PM [facility] eGFR 120 >=60 mL/min/1. 73m2 LAB CHEMISTRY METHOD 07/18/2024 8:35 PM EDT [facility] Comment:Calculation based on the Chronic Kidney Disease Epidemiology Collaboration (CKD-EPI) equation refit without adjustment for race. BUN/Creatinine Ratio 15.9 LAB CHEMISTRY METHOD 07/18/2024 8:35 PM EDT [facility] Calcium 8.9 8.5 - 10.5 mg/dL LAB CHEMISTRY METHOD 07/18/2024 8:35 PM EDT [facility] Blood Venous blood specimen / Unknown Venipuncture / Unknown 07/18/2024 7:44 PM EDT 07/18/2024 8:03 PM EDT us Elizabeth Avendano Edwin Otto DO LAB BLOOD ORDERABLES Milvia l Result [facility] [address] [place] [address], [place] [phone] * XR Chest 2 Views (06/27/2024 3:08 PM EDT) Anatomical Region Laterality Modality Body Radiographic Danielle ging 06/27/2024 3:21 PM EDT Impressions 06/27/2024 3:21 PM EDT Unremarkable chest exam -------- FINAL REPORT -------- Dictated By: Darek Chávez Dictated Date: 06/27/2024 15:21 ET Assigned Physician: Darek Chávez Reviewed and Electronically Signed By: Darek Chávez Signed Date: 06/27/2024 15:21 ET Workstation ID: [id number] Transcribed By: Self Edit Transcribed Date: 06/27/2024 [...] Signed Date: 06/27/2024 15:21 ET Workstation ID: [id number] Transcribed By: Self Edit Transcribed Date: 06/27/2024 15:21 ET us Violeta Acosta PA IMG XR PROCEDURES Milvia l Result * (ABNORMAL) Respiratory virus panel molecular study (06/27/2024 2:03 PM EDT) Adenovirus Detection by PCR Not Detected Not Detected LAB MICROBIOLOGY METHOD 06/27/2024 3:11 PM EDT [facility] Influenza A PCR Not Detected Not Detected LAB MICROBIOLOGY METHOD 06/27/2024 3:11 PM EDT [facility] Influenza B PCR Not Detected Not Detected LAB MICROBIOLOGY METHOD 06/27/2024 3:11 PM EDT [facility] Coronavirus 229E Not Detected Not Detected LAB MICROBIOLOGY METHOD 06/27/2024 3:11 PM EDT [facility] Coronavirus HKU1 Not Detected Not Detected LAB MICROBIOLOGY METHOD 06/27/2024 3:11 PM EDT [facility] Coronavirus OC43 Not Detected Not Detected LAB MICROBIOLOGY METHOD 06/27/2024 3:11 PM EDT [facility] Coronavirus NL63 Not Detected Not Detected LAB MICROBIOLOGY METHOD 06/27/2024 3:11 PM EDT [facility] Parainfluenza Virus 1 Not Detected Not Detected LAB MICROBIOLOGY METHOD 06/27/2024 3:11 PM EDT [facility] Parainfluenza Virus 2 Not Detected Not Detected LAB MICROBIOLOGY METHOD 06/27/2024 3:11 PM EDT [facility] Parainfluenza Virus 3 Not Detected Not Detected LAB MICROBIOLOGY METHOD 06/27/2024 3:11 PM EDT [facility] Parainfluenza Virus 4 Not Detected Not Detected LAB MICROBIOLOGY METHOD 06/27/2024 3:11 PM EDT [facility] RSV PCR Not Detected Not Detected LAB MICROBIOLOGY METHOD 06/27/2024 3:11 PM EDT [facility] Human Metapneumovirus A and B Detected(A ) Not Detected LAB MICROBIOLOGY METHOD 06/27/2024 3:11 PM EDT [facility] Rhinovirus/Entero virus Not Detected Not Detected LAB MICROBIOLOGY METHOD 06/27/2024 3:11 PM EDT [facility] Bordetella pertussis Not Detected Not Detected LAB MICROBIOLOGY METHOD 06/27/2024 3:11 PM EDT [facility] Bordetella parapertussis Not Detected Not Detected LAB MICROBIOLOGY METHOD 06/27/2024 3:11 PM EDT [facility] Mycoplasma pneumo by PCR Not Detected Not Detected LAB MICROBIOLOGY METHOD 06/27/2024 3:11 PM EDT [facility] Chlamydia pneumoniae Not Detected Not Detected LAB MICROBIOLOGY METHOD 06/27/2024 3:11 PM EDT [facility] SARS COV-2 Not Detected Not Detected LAB MICROBIOLOGY METHOD 06/27/2024 3:11 PM EDT [facility] Swab Both anterior nares / Unknown Non-blood Collection / Unknown 06/27/2024 2:03 PM EDT 06/27/2024 2:08 PM EDT [facility] - 06/27/2024 3:11 PM EDT Testing was performed using the [employer] Respiratory Pathogen PCR Assay. All results must [...] - GEN ERAL ORDERABLES Final Result [facility] [address] [place] [address], from Last 3 Months Additional Health Concerns Infection Onset Date Last Indicated Human Metapneumovirus 06/27/2024 06/27/[address] [address] [facility] Care Teams Cheese Wrapper Relationship Specialty Start Date End Date Rosy Petty MD [address] [phone] PCP - General Internal Medicine 04/04/24
== END 2024-09-21 10:51 | disposition home or self-care (01) ==
LOC: HO.HGS 10:22
PROVIDERS: PCP Internal Medicine
DX: Z48.02 Encounter for removal of sutures (principal)
CPT/HCPCS: 99213

== ENCOUNTER → 2024-09-21 10:21 | Outpatient (BNVA) | payer OTHER, SELFPAY | PROVIDERS: PCP Internal Medicine | DX: Z48.02 Encounter for removal of sutures (principal) | CPT/HCPCS: 99212 ==